=== PATIENT | male | born 1970 | race Caucasian/White ===

== ENCOUNTER 2025-06-21 06:16 | Day surgery (SDC) | payer OTHER, SELFPAY ==
[2025-06-19 09:37] LABS: Hematocrit 44.2 % (39.0-52.0); Hemoglobin 14.0 g/dL (13.0-18.0); Mean Corp Hgb Conc. 31.7 g/dL (33.0-37.0); Mean Corpuscular Volume 91.5 fL (80.0-94.0); Platelet Count 294 10^3/uL (130-400); Red Cell Dist. Width 12.6 % (11.5-14.5)
[2025-06-19 10:05] LABS: Blood Urea Nitrogen 22 mg/dl (9-20); Calcium 9.9 mg/dl (8.4-10.2); Carbon Dioxide 30 mmol/L (22-30); Chloride 104 mmol/L (98-107); Glucose 105 mg/dl (70-99); Potassium 5.1 mmol/L (3.5-5.1); Sodium 140 mmol/L (135-145); eGFR > 60.00
[2025-06-19 13:59] VITALS: BMI 36.2
[2025-06-21 07:39] VITALS: BP 141/93
[2025-06-21] MEDS: NEOMYCIN ENEMA 1 BOTTLE RECTAL (07:53)
[2025-06-21] MEDS: NORMOSOL-R/PLASMALYTE-A 1000 IV (07:54)
[2025-06-21 08:03] VITALS: BMI 36.2
[2025-06-21 09:13] VITALS: BP 108/55
[2025-06-21 09:15] VITALS: BP 111/59
[2025-06-21 09:30] VITALS: BP 106/59
[2025-06-21 09:45] VITALS: BP 119/68
[2025-06-21 10:05] VITALS: BP 142/83
== END 2025-06-21 10:07 | disposition home or self-care (01) ==
LOC: SDS 06:16
PROVIDERS: ATTENDING PHYSICIAN Specialist; FAMILY PHYSICIAN Internal Medicine; PRIMARYCARE PHYSICIAN Family Medicine
DX: C61 Malignant neoplasm of prostate (principal); Z80.42 Family history of malignant neoplasm of prostate
CPT/HCPCS: 55700; 36415; 76998; 80048; 85027; 88305; 88344; 93005

== ENCOUNTER → 2025-07-22 11:38 | Outpatient (REF) | payer OTHER, SELFPAY | LOC: MRI 3T 11:38 | PROVIDERS: ATTENDING PHYSICIAN Specialist | DX: R97.20 Elevated prostate specific antigen [PSA] (principal) | CPT/HCPCS: 72197; A9575 ==

== ENCOUNTER 2025-08-15 06:39 | Day surgery (SDC) | payer OTHER, SELFPAY ==
--- NOTE | 2025-08-10 14:23 | PTCARENOTE ---
Abnormal EKG from 06/19/[address] España, no further action required.
[2025-08-15] VITALS (10 sets, daily range): BP systolic 95–164; BP diastolic 40–97; BMI 35.0
[2025-08-15] MEDS: NORMOSOL-R/PLASMALYTE-A 1000 IV ×2 (11:44→18:10)
[2025-08-15] MEDS: NEOMYCIN ENEMA 1 BOTTLE RECTAL (11:45)
[2025-08-15] MEDS: DILAUDID 0.25 MG IV (17:19)
[2025-08-15] MEDS: COLACE 100 MG PO (18:12)
[2025-08-15] MEDS: POLYSPORIN/DOUBLE ANTIBIOTIC 1 APPLIC TOPICAL (20:50)
[2025-08-15] MEDS: TORADOL 15 MG IV (21:00)
[2025-08-16] MEDS: NORMOSOL-R/PLASMALYTE-A 1000 IV (02:00)
[2025-08-16] MEDS: TORADOL 15 MG IV ×3 (03:20→14:09)
[2025-08-16 03:25] VITALS: BP 148/75
[2025-08-16 06:18] LABS: Hematocrit 40.0 % (39.0-52.0); Hemoglobin 13.3 g/dL (13.0-18.0); Mean Corp Hgb Conc. 33.3 g/dL (33.0-37.0); Mean Corpuscular Volume 89.3 fL (80.0-94.0); Platelet Count 228 10^3/uL (130-400); Red Cell Dist. Width 11.9 % (11.5-14.5)
[2025-08-16 06:36] LABS: Blood Urea Nitrogen 15 mg/dl (9-20); Calcium 8.6 mg/dl (8.4-10.2); Carbon Dioxide 29 mmol/L (22-30); Chloride 104 mmol/L (98-107); Estimated Creatinine Clearance 99 ml/min; Glucose 115 mg/dl (70-99); Potassium 4.4 mmol/L (3.5-5.1); Sodium 134 mmol/L (135-145); eGFR > 60.00
[2025-08-16] MEDS: COLACE 100 MG PO (07:17)
[2025-08-16 08:01] VITALS: BP 148/86
[2025-08-16] MEDS: POLYSPORIN/DOUBLE ANTIBIOTIC 1 APPLIC TOPICAL (08:11)
[2025-08-16] MEDS: LIPITOR 20 MG PO (08:11)
--- NOTE | 2025-08-16 08:36 | W.PN.URO.CBU ---
Today's Communication / Plan
-
discharge
Assessment / Plan
-
stable
Diagnosis
-
Date of Service: August 16, 2025
-
Patient Diagnosis: prostate ca s/p prostatectomy
Post Op Day: 1
Subjective
-
expected abdominal-pelvic discomfort
Objective
-
Vital Signs
Temp Pulse Resp BP Pulse Ox
98.6 F 98 16 148/86 97
08/16/25 08:01 08/16/25 08:01 08/16/25 08:01 08/16/25 08:01 08/16/25 08:01
Intake and Output
08/15/25 08/16/25 08/17/25
06:59 06:59 06:59
Intake Total 1440 / 1440
Output Total 2350 / 2350
Balance -910 / -910
Intake:
Oral fluids 240 / 240
IV fluids (Total) 1200 / 1200
Output:
Urine, Mike 2350 / 2350
Laboratory Results
08/16/25 05:52
08/16/25 05:52
Physical Exam
-
General - well developed, well nourished, no acute distress
Abdomen - soft, non-tender, positive bowel sounds, no distention
Genitalia - Mike with yellow urine
Skin - warm & dry with no rash
Neuro - AOx3, no motor deficits
Extremities - no clubbing, no cyanosis, no edema
Dressings - clean, dry, intact
Care Review
Data Reviewed
Discussed with: Nursing
--- NOTE | 2025-08-16 09:48 | VNURNOTE ---
Addendum entered by Latoya Mckeon RN 08/16/25 11:51:
Rec'ed update that [facility] will accept pt. Discussed with pt and he is agreeable. ANDREA Fernandez updated. Referral placed in [facility]. .
Original Note:
Home Health Liaison met with patient at bedside to discuss [facility] nurse/therapy, visits, schedule and homebound status. Patient is agreeable and understands that visits at home will be 2-3 x per week to assess and teach medical and barros
management. Patient is aware that [facility] will contact them for start of care within a few days after discharge from . Provided contact number for [facility].
[facility] referral completed in [facility].
--- NOTE | 2025-08-16 10:46 | CM ---
patient seen at bedside
IA Completed
CM consult completed. VN
Options reviewed, prefers [facility] liaison notified. Referral entered
PLOF: Independent
denies DME
Denies VN/Rehab
PCP: Laila Inman
Pharmacy: [address]
PLAN: Home with [facility]
to transport
[2025-08-16] MEDS: COLACE PO (13:20)
[2025-08-16] MEDS: FLUZONE (6 mos+) 2025-2026 FORMULA 0.5 ML IM (13:31)
[2025-08-16 14:00] VITALS: BP 143/89
--- NOTE | 2025-08-16 14:23 | PTCARENOTE ---
patient educated on leg bag and barros hygiene. d/c instructions explained. flu shot given to left deltoid. patient tolerated well.
== END 2025-08-16 14:48 | disposition home or self-care (01) ==
LOC: SDS 06:39
PROVIDERS: ATTENDING PHYSICIAN Specialist
DX: C61 Malignant neoplasm of prostate (principal)
CPT/HCPCS: 55866; 38571; 53431; 80048; 85027; 88305; 88307; 88309; 88331